=== PATIENT | female | born 1990 | race Caucasian/White ===

== ENCOUNTER 2016-09-17 22:25 | Outpatient (CLI) | payer MEDICAID ==
[2016-10-22] MEDS ORDERED: MOTRIN-DPS800 MG PO (11:22)
[2016-10-22] MEDS ORDERED: COLACE-DPS100 MG PO (11:22)
[2016-10-22] MEDS ORDERED: NIPPLECREAM TP (11:23)
[2016-10-22] MEDS ORDERED: PERCOCET 5 DPS1 TAB PO (11:23)
== END 2016-09-18 00:55 | disposition home or self-care (01) ==
LOC: BC 22:25
DX: O99.89 Other specified diseases and conditions complicating pregnancy, childbirth and the puerperium (principal); R10.2 Pelvic and perineal pain; O42.912 Preterm premature rupture of membranes, unspecified as to length of time between rupture and onset of labor, second trimester; Z3A.27 27 weeks gestation of pregnancy

== ENCOUNTER 2016-10-05 09:55 | Outpatient (CLI) | payer MEDICAID ==
[~2016-10-05] VITALS: Ht 165.1 cm; Wt 153.8 kg
[2016-10-22] MEDS ORDERED: MOTRIN-DPS800 MG PO (11:22)
[2016-10-22] MEDS ORDERED: COLACE-DPS100 MG PO (11:22)
[2016-10-22] MEDS ORDERED: NIPPLECREAM TP (11:23)
[2016-10-22] MEDS ORDERED: PERCOCET 5 DPS1 TAB PO (11:23)
== END 2016-10-05 12:52 | disposition home or self-care (01) ==
LOC: BC 09:55 → 2LDRP 09:55 → BC 12:52
DX: O99.89 Other specified diseases and conditions complicating pregnancy, childbirth and the puerperium (principal); N89.8 Other specified noninflammatory disorders of vagina; Z3A.30 30 weeks gestation of pregnancy

== ENCOUNTER 2016-10-10 13:00 | Inpatient (IN) | payer MEDICAID ==
[~2016-10-10] VITALS: Ht 165.1 cm; Wt 148.8 kg
--- NOTE | 2016-10-17 09:52 | HP ---
ADMIT: 10/10/2016 RM/LOC: 218 [facility] MR#: [id number] [id number] [address] MILAGROS RAMIRES [address] [place] [address] History and Physical SEX: F AGE: 26 : 1990 DATE OF SERVICE: CHIEF COMPLAINT: Leaking fluid. HISTORY OF PRESENT ILLNESS: This is a 26-year-old female, 2, para 1, who presents to the [facility] with an intrauterine at 30 and 6/7th weeks' gestation with estimated date of confinement of 12/13/2016. Her estimated date of confinement is based off the last menstrual period and consistent with an 8-week ultrasound. She was initially seen and evaluated in the office for a routine OB visit. At that time, she did report intermittent pink spotting. A speculum exam was done for evaluation of this and pooling was noted and the fluid was Nitrazine-positive. She was, therefore, sent to the [facility] for further evaluation of her premature rupture of membranes. Her has been complicated by obesity, chronic hypertension, and previous x1. She has been seen and followed by Maternal Medicine. growth and anatomy had been felt to be normal. PAST OBSTETRICAL HISTORY: She had one term section secondary to failure to progress. LABORATORY DATA: Blood type is A positive. Antibody screen is negative. RPR nonreactive. Rubella immune. HIV negative. Hepatitis B surface antigen negative. Gonorrhea, chlamydia is negative. Quad screen was normal. Diabetic screen 112. Group B Strep is unknown. PAST MEDICAL HISTORY: Significant for chronic hypertension. She denies diabetes, asthma, kidney, or thyroid disease. PAST SURGICAL HISTORY: Tonsillectomy and in 2010. SOCIAL HISTORY: She is . She denies tobacco, alcohol, or drug use. ALLERGIES: MINOCYCLINE CAUSES A RASH. CURRENT MEDICATIONS: 1. vitamins. 2. Baby aspirin daily. PHYSICAL EXAMINATION: VITAL SIGNS: Temperature is 98.8, pulse 83, respirations 16, blood pressure is 126/57. GENERAL: This is a pleasant female, in no acute distress. HEART: Regular rate and rhythm. LUNGS: Clear. ABDOMEN: Soft, nontender, and nondistended. Gravid. EXTREMITIES: Nontender. heart tones are 130s baseline, moderate variability is present, 15 x 15 accelerations are present. Decelerations are absent. NST is reactive. Uterine tocometer shows no uterine contractions. Cervical exam is deferred ADMIT: 10/10/2016 RM/LOC: 218 [facility] MR#: [id number] [address] [address] MILAGROS RAMIRES [address] [place] [address] History and Physical SEX: F AGE: 26 : 1990 here, but in the office, there was pooling, Nitrazine-positive, cervix was only limited visualization, did not appear to be dilated. LABORATORY DATA: AmniSure confirms rupture of membranes. Ultrasound shows a single intrauterine , vertex presentation. Estimated weight is 1975 g, 84th percentile. Amniotic fluid index 7.5. CBC shows a white blood cell count of 12, hemoglobin 12.6, hematocrit 37.8, and platelet count 150. IMPRESSION: 1. This is a 26-year-old female, 2, para 1, with an intrauterine at 38-6/7th weeks' gestation. 2. premature rupture of membranes. 3. History of previous . 4. Obesity. 5. Chronic hypertension. PLAN: At this time, we will admit the patient for premature rupture of membranes. We will start magnesium sulfate for neuroprotection. We will also administer betamethasone 12 mg IM x1 now and repeat this in 24 hours. Additionally, we will start IV antibiotics to try to prolong latency. We will start with the ampicillin 2 g IV q.6 hours x48 hours and then switch to amoxicillin 500 mg t.i.d. for 5 days. We will also give azithromycin 1 g p.o. x1 now. We will obtain a group B strep culture. At this time, we will plan a repeat for signs or symptoms of labor, infection, distress, or at 34 weeks. At this time, I have reviewed this case with Pediatrics, given a plan to attempt to get her to [address] Correa feels that it is reasonable to keep Milagros inpatient here for management. I did discuss with Milagros, however, should her baby be born in the next week, then there is a possibility that he will be stabilized and then transferred to [place]. We reviewed the risks and benefits of transferring her now to [place] for inpatient management and subsequent delivery. She understands the risks and benefits of management here versus management in [place] and at this time elects to stay in [place]. All of her questions have been answered at this time. Nichole Lopez MD/ edgar JOB #: [id number] CC: Marielos Turnre, Attending Physician Marielos Turner, Family Physician
[2016-10-22] MEDS ORDERED: COLACE-DPS100 MG PO (11:22)
[2016-10-22] MEDS ORDERED: MOTRIN-DPS800 MG PO (11:22)
[2016-10-22] MEDS ORDERED: NIPPLECREAM TP (11:23)
[2016-10-22] MEDS ORDERED: PERCOCET 5 DPS1 TAB PO (11:23)
--- NOTE | 2016-10-23 06:27 | CO ---
ADMIT: 10/10/2016 RM/LOC: 201 [facility] MR#: [id number] [id number] [facility] [address] [place], [place] [address] LELE LAGUERRE [address] [place] [address] Consultation SEX: F AGE: 26 : 1990 DATE OF CONSULTATION: 10/16/2016 ATTENDING PHYSICIAN: Marielos Turner CONSULTING PHYSICIAN: James Jay MD REASON FOR CONSULTATION: Discussed with mom regarding delivery. I was asked by Dr. Turner at [facility] to meet with Mrs. Laguerre regarding risk of having delivery. I reviewed the history and physical done by Dr. Turner dated September,. HISTORY OF PRESENT ILLNESS: In summary, Mrs. Laguerre is a 26-year-old, 2, para 1 mom, who was admitted to Labor and Delivery on September, after it was noted that she had premature rupture of membranes. Estimated gestational age at that time was 30-6/7 weeks (by dates). Maternal risk factors include rupture of membranes, also obesity, chronic hypertension, and a previous delivery. Also, mom did test positive for group B Strep bacteria. Since admission to the hospital, mom has received 2 doses of betamethasone. She also has received some magnesium sulfate. She did receive intravenous antibiotics of ampicillin and oral amoxicillin. Plans by Dr. Turner in [facility] is to try to get mom to 34 weeks of gestation and then do a repeat ; however, if mom does go into spontaneous labor or has any signs of infection or distress, they plan to do delivery sooner. At this time, it was reported that mom is stable. I did discuss with parent the potential risk of born . I did state that even with the delivery at 34 weeks, the initial concerns we have for baby or the respiratory and cardiac status of the baby. There is a risk that baby could have developed infant respiratory distress syndrome due to surfactant deficiency that would require intubation, ventilatory support, and administration of surfactant such as Curosurf; however, I did tell parent that receiving the intravenous steroids prior to delivery can reduce this risk, but not to 100%. I also told parent that in some cases even if the baby is having adequate respirations, they may need some oxygen support with nasal cannula oxygen. I also told parent that infants are at increased risk for infection. Also with mom being group B strep positive, it is important that she receive intrapartum antibiotics prior to delivery. This has been addressed and seems to be adequate treatment for this. Also since mom is a previous delivery, delivering the baby may also reduce the risk for developing infection due to group B strep bacteria; however, baby is also prone to getting other infections and therefore in the intensive care unit visitation with the persons that have even mild ill symptoms is restricted. Another risk of infants born early is the risk of having slow or poor feedings. I did tell parent that we always try to start enteral feedings as soon as we can; however, the baby does have other complications such as respiratory complications, then this may delay starting enteral feedings. Therefore, this is the case infant may need to be started initially on nutritional support with intravenous fluids and total parenteral nutrition ADMIT: 10/10/2016 RM/LOC: 201 [facility] MR#: [id number] [address] [place] [id number] LELE LAGUERRE [address] [place] [address] Consultation SEX: F AGE: 26 : 1990 until we can establish enteral feedings. Also for infants, the ability to suck and swallow may not be fully developed and therefore, oral feedings put the baby at risk for aspiration and other feeding difficulties. Therefore, babies which are born , their initial enteral feedings is via nasogastric tube; however, we do always try to feed initially with breast milk if parent desires and/or formula as soon as we are able. I did tell parent that a rare complication of babies and enteral feedings is necrotizing enterocolitis. I did tell the parent that this is where there is inflammation and an infection of the intestinal lining that may also affect the ability to feed adequately. Also discussed with the parent a very common complications of infants is apnea and bradycardia of prematurity. I told parent that while in the intensive care unit, child will be monitored for these events. In some cases if the events are severe or frequent, then baby may need to be treated with caffeine citrate that helps stimulate the brain to reduce the episodes and severity of apnea and bradycardia events. Also, told the parent that in some cases infants may be discharged to home on monitor to monitor the breathing and the heart rate that may be kept in place for few weeks after discharge as an outpatient. I did tell parent that typically if she is to keep a in the hospital longest for the establishment of oral feedings to make sure that the respiratory status is stable. I did tell parent that common things that are typically done prior to discharge of a infant from the hospital include a car seat study to make sure that the baby can maintain an adequate respiratory rate and oxygen level while sitting up in a car seat. This is done typically for babies which are born less than 37 weeks of age and/or less than 2500 g of weight. I did tell parent that in many cases we can manage a infant at the intensive care unit here at [facility]; however, we do also have a low threshold that if there are any complications that we feel cannot be addressed adequately here that we will send the baby to a tertiary care hospital such as [facility] or [facility]. After I discussed these issues with the parent, mom states that she feels like her questions have been answered adequately. I told mom that we would be in close contact with [facility] and they have any concerns about mom's status and need for imminent delivery that we would be involved and informed of this. James Jay MD/ edgar JOB #: [id number] CC: Marielos Turner, Attending Physician Marielos Turner, Family Physician
--- NOTE | 2016-12-03 17:41 | DS ---
ADMIT: 10/10/2016 RM/LOC: 201 [facility] MR#: [id number] [id number] [facility] [address] [place], [place] [address] LELE RAMIRES [address] [place] [address] General Discharge Summary SEX: F AGE: 26 : 1990 ADMISSION DATE: 10/10/2016 DISCHARGE DATE: 10/21/2016 ADMISSION DIAGNOSES: 1. A 26-year-old, 2, para 1, with intrauterine at 30 and 6/7 week gestation. 2. Obesity. 3. Chronic hypertension. 4. premature rupture of membranes. DISCHARGE DIAGNOSES: 1. Status post repeat low transverse . 2. Obesity. 3. Chronic hypertension. SERVICE: Obstetrics. PHYSICIANS: Nichole Lopez MD, Iman Jackson MD, and Marielos Turner MD. CONSULT: James Jay MD with Pediatrics on 10/16/2016. PROCEDURES: Repeat low transverse on 10/19/2016. HISTORY AND PHYSICAL EXAM: Briefly, the patient is a 26-year-old, 2, para 1, presented to the clinic for routine OB visit. At that time, she reported some intermittent pink spotting, and a speculum exam was concerning for pooling of amniotic fluid which was nitrazine positive. She was diagnosed with premature rupture of membranes and admitted at [facility]. HOSPITAL COURSE: On hospital day #1, the patient was admitted and started on magnesium sulfate for neuro protection, which was continued for 24 hours. The patient was given betamethasone injection, which was repeated 24 hours later for lung maturity. Additionally, she was started on IV antibiotics for latency, which included ampicillin and azithromycin. A group B strep culture was obtained at that time. An ultrasound was also performed for growth and position. On hospital day #2, the patient had no complaints. Magnesium was discontinued. The second dose of steroids was given, and the antibiotics were also continued. On hospital day #3, the patient continued to remain stable. She was switched to intermittent monitoring. Over the next week, the patient remains stable. She was given bowel regimen for constipation. Pediatrics was consulted to discuss expectations for infant, and the patient was switched to oral antibiotics for latency. On the 3rd of October, she did start to complain of some inner thigh itching consistent with cutaneous yeast infection, and she was given Monistat to treat that. On the morning of the 4th, the patient was complaining of decreased movement. The nonstress test was not reactive, and a biophysical profile was ordered. The biophysical profile was noted to be 4/8 with 2 off for breathing and 2 off for fluid. At that time, the recommendation was to proceed with for ADMIT: 10/10/2016 RM/LOC: 201 [facility] MR#: [id number] [address] [address] LELE RAMIRES [address] [place] [address] General Discharge Summary SEX: F AGE: 26 : 1990 delivery due to nonreassuring status. Dr. Jackson and Dr. Liu performed that procedure on 10/19/2016. Please see dictated operative report for more information. Postoperatively, the patient did well. On postoperative day #1, her pain was well controlled. She was tolerating a regular diet. Vital signs were stable and hemoglobin had decreased appropriately. On postoperative day #2, the patient continued to improve. She was passing gas and felt to be stable for discharge. DISPOSITION: Discharged to home. DISCHARGE CONDITION: Good. DISCHARGE MEDICATIONS: 1. Colace 100 mg p.o. b.i.d. 2. Motrin 800 mg p.o. q.8 hours p.r.n. pain. 3. Percocet 5/325, 1 to 2 p.o. q.4 hours p.r.n. pain. 4. Mane's nipple cream 1 application to nipples as needed. DISCHARGE INSTRUCTIONS: The patient is to maintain pelvic rest for 6 [address] while taking narcotics, and no lifting greater than 15 pounds. The patient is to follow up in [address] Turner for a checkup. She is to call the clinic prior to that time if she experiences any pain not controlled by pain medications, heavy vaginal bleeding, intractable nausea or vomiting, temperature greater than 100.4 degrees Fahrenheit, or any incisional concerns. Marielos Turner MD/ edgar JOB #: [id number] CC: Iman Jackson MD, Attending Physician Marielos Turner MD, Family Physician
--- NOTE | 2017-02-14 09:53 | OR ---
ADMIT: 10/10/2016 RM/LOC: 201 [facility] MR#: [id number] 2620 [facility] [address] [place], [place] [address] RAMIRESESTRADA ONEILLA Luke [address] [place] [address] Operative/Delivery Room Report SEX: F AGE: 26 : 1990 CORRECTED: 01/30/2017 0917 DJS SURGERY DATE: 10/19/2016 SURGEON: Iman Jackson MD PRESIDENT FINANCIAL INSTITUTION: Len Liu MD PREOPERATIVE DIAGNOSES: 1. intrauterine at 32 weeks and 1/7 days. 2. premature rupture of membranes. 3. Biophysical profile of 4/10. 4. History of previous section. 5. Morbid obesity. POSTOPERATIVE DIAGNOSES: 1. intrauterine at 32 weeks and 1/7 days. 2. premature rupture of membranes. 3. Biophysical profile of /10. 4. History of previous section. 5. Morbid obesity. PROCEDURE: Repeat low-transverse section. ANESTHESIA: Spinal. ANTIBIOTICS: Ancef prior to skin incision. VTE PROPHYLAXIS: She had sequential compression devices. ESTIMATED BLOOD LOSS: 700 mL. IV FLUIDS: 2100 mL. URINE OUTPUT: 250 mL of clear urine. FINDINGS: Viable male with scores of 8 and 9. Weight of 4.5 Pounds. Intact placenta with 3-vessel cord. Normal uterus, tubes, and ovaries. Umbilical cord was inferior to head crossing over cervix at the time of delivery. INDICATIONS FOR PROCEDURE: This is a 26-year-old -0-0-1, who was on hospitalized bedrest for history of premature rupture of membranes. She was on b.i.d. monitoring in the morning. NST was nonreactive. Biophysical profile was ordered and was found to be 4/10. It was decided to proceed with a repeat section for biophysical profile of 4/10. PROCEDURE IN DETAIL: The patient was taken the operating room, where spinal anesthetic was placed. She was placed in dorsal supine position with a ADMIT: 10/10/2016 RM/LOC: 201 [facility] MR#: [id number] [address] [address] RAMIRESJERRYLELE Luke [address] [place] [address] Operative/Delivery Room Report SEX: F AGE: 26 : 1990 leftward tilt. She was prepped and draped in the usual sterile fashion. A time- out was performed. A Pfannenstiel incision was then made inferior to her old scar and carried down to the underlying fascia. Fascia was then incised to the midline and extended sharply with Dudley scissors to the angles. Hong's x2 were placed on the superior aspect of the fascia and the fascia was dissected off the rectus muscles bluntly. Midline adhesions were taken down sharply with Dudley scissors. Hong's were removed and placed on the inferior aspect of the fascia and rectus muscles were again dissected off. Midline adhesions were taken down sharply with Dudley scissors. The omental adhesions to the rectus were noted, but there was a defect directly into the peritoneum at this point in time. With the surgeon's hands in the defect and free of any omentum or bowel, pressure was used to extend the peritoneal incision. Bladder blade was placed with good visualization of lower uterine segment. No significant adhesions were noted. Bladder flap was created with Avila and Alona and developed digitally. Bladder flap was replaced. Clean scalpel was then used to make hysterotomy incision. Hysterotomy incision was extended. head was then grasped and flexed and brought to the level of the incision. Cord was then seen traversing ear-to-ear of head. The rest of the infant then delivered. Cord was milked. The cord was then clamped and cut and the was handed to waiting nursing staff. The placenta then delivered with gentle traction. The uterus was then exteriorized and cleared of all remaining clots and debris. Hysterotomy incision was then closed with 0 Vicryl in a running locked fashion. Hemostasis was noted. Posterior cul-de-sac was irrigated. Uterus was then returned to the abdomen. Gutters were then visualized and cleared of any clots with clean wet lap. The hysterotomy incision was then again examined, there was a little bit of bleeding in the midline and [id number] suture was placed to achieve hemostasis. The rectus muscles were then inspected and any areas of bleeding were cauterized with Bovie. Fascia was then closed using 0 PDS on a loop starting at the left ADMIT: 10/10/2016 RM/LOC: 201 [facility] MR#: [id number] [address] [address] LELE RAMIRES [address] [place] [address] Operative/Delivery Room Report SEX: F AGE: 26 : 1990 angle and closing on the right. Subcutaneous tissue was then irrigated. Any areas of bleeding were cauterized with Bovie. A 2-0 plain gut in interrupted sutures were placed to reapproximate subcutaneous tissue. Skin was closed with 4-0 Vicryl in a subcuticular fashion. Provena wound incisional vacuum was placed over the wound prior to leaving the OR. Sponge and instrument counts were correct x2. COMPLICATIONS: None. DISPOSITION: Mom stable in delivery room. to NICU. Iman Jackson MD/ edgar JOB #: [id number] CC: Marielos Turner MD, Attending Physician Marielos Turner MD, Family Physician CORRECTED: 01/30/2017 0917 DJS
== END 2016-10-21 12:00 | disposition home or self-care (01) | DRG 765 ==
LOC: BC 13:00 → 2LDRP 13:00 → BC 16:00 → 2LDRP 16:00 → BC 12-13 08:00
PROVIDERS: ADMIT Obstetrics & Gynecology
PROC: 10D00Z1 Extraction of Products of Conception, Low, Open Approach (ICD-10-PCS; principal; 2016-10-19)
DX: O42.913 Preterm premature rupture of membranes, unspecified as to length of time between rupture and onset of labor, third trimester (principal); O60.14X0 Preterm labor third trimester with preterm delivery third trimester, not applicable or unspecified; Z68.42 Body mass index [BMI] 45.0-49.9, adult; O10.02 Pre-existing essential hypertension complicating childbirth; O34.211 Maternal care for low transverse scar from previous cesarean delivery; O99.214 Obesity complicating childbirth; O99.824 Streptococcus B carrier state complicating childbirth; E66.01 Morbid (severe) obesity due to excess calories; Z3A.30 30 weeks gestation of pregnancy; Z37.0 Single live birth